=== PATIENT | male | born 1960 | race African-American/Black ===

== ENCOUNTER 2018-05-17 06:06 | Inpatient (IN) | payer OTHER ==
[~2018-05-17] VITALS: Ht 167.6 cm; Wt 74.8 kg
[2018-05-17] VITALS (9 sets, daily range): BP systolic 93–125; BP diastolic 67–99
--- NOTE | ~2018-05-17 | HC ---
[facility] [place] [address] CONSULTATION Name: GEOVANI VANESSA Room #: 351-P [facility] IN M.R.#: [id number] Admission: 05/17/18 ������������������ Attend Phys: Noel Hong MD Discharge: ������������������ Date of : 64 Report #: [id number] THIS REPORT FOR: //name// CC: FAM unknown Noel Hong DATE OF SERVICE: 05/18/2018 HISTORY OF PRESENT ILLNESS: We were asked to see this gentleman because of concerns about mood, anxiety and substance use disorder. The patient acknowledges he is on medicine for depression, but does not recall what it was. It seems that he is very uncomfortable. They also asked for our input regarding substance use. He is not very forthcoming about this. His is in the room too half awake. We gave him the opportunity to talk to us privately, but he declined. PAST PSYCHIATRIC HISTORY: He acknowledges he is on medicine for depression and anxiety per the medical record, was taking his Prozac. FAMILY HISTORY: Noncontributory. ALLERGIES: No known medication allergies. CURRENT MEDICATIONS: Include Ativan p.r.n., Lipitor 40 daily, ferrous sulfate 325 daily, lisinopril 2.5 daily, furosemide 40 daily, hydrocortisone p.r.n., Prozac 20 daily, Xanax 3 times a day. PAST MEDICAL HISTORY: Coronary artery disease, decreased ejection fraction, shortness of breath, vascular disease, cardiomegaly. SOCIAL HISTORY: He is . It seems there is recreational use of drugs including marijuana and amphetamine. MENTAL STATUS EXAM: -[place] male, casually dressed, depressed, slightly anxious, decreased speech, decreased alertness. No suicidal or homicidal ideation elicited. Insight and judgment limited. DIAGNOSES: Substance use disorder, major depressive disorder, recurrent, moderate; anxiety disorder, not otherwise specified. RECOMMENDATIONS: Upon visiting with the gentleman, I suspect that he may be on Solu-Medrol for COPD and that some of his symptoms were influenced by the Solu-Medrol as it can worsen anxiety. However, he is not on Solu-Medrol. Chest x-ray has not been suggestive of pneumonia, and his O2 sats are actually quite good. Somewhat surprisingly, he has not had any hypertension relative to his amphetamine use, but does have a little bit of tachycardia, which could [facility] [address] [place] [address] CONSULTATION Name: GEOVANI VANESSA Room #: 351-P ADM IN M.R.#: [id number] Admission: 05/17/18 ������������������ Attend Phys: Noel Hong MD Discharge: ������������������ Date of : 64 Report #: [id number] certainly be due to his decreased ejection fraction, could be influencing his fatigue. I did try to engage this gentleman a dialogue about sobriety, but does not appear he is really ready for that at this time. It does not appear that the benzodiazepines are affecting his respiratory rate or O2 saturation. We could perhaps increase the Xanax briefly at the same time and another medicine for anxiety and mood such as gabapentin. The only other significant abnormality is his INR. I am not completely clear if this is a metabolic issue or dosage overdosage situation. ��������������������������������������������� ���������������������������������������� By: ��������������������������������������������� [id number] Jean Villalba MD /nt
[~2018-05-17 06:06] MED LIST: ASPIR 8181 MG PO; ATORVASTATIN CA40 MG PO; CARVEDILOL3.125 MG PO; CLARINEX-D 121 EACH PO; COUMADIN 4 MG TA4 M1 PO; COUMADIN 5 MG TA5 M1 PO; DEPAKOTE500 MG; FLONASE 0.05%50 MCG NASAL; LISINOPRIL2.5 M1 PO; NAPROSYN500 MG PO; NITROGLYCERIN0.4 MG SUBLING; NORCO 5-325 TA1 EACH PO; PENICILLIN VK500 MG PO; PROAIR HFA8.5 GM INH; PROZAC20 MG PO; SEROQUEL 25 MG25 M1; TORSEMIDE20 MG PO; TRAZODONE 150150 M1; VICODIN; VICODIN 5-5001 EACH PO; XANAX 0.5 MG0.5 MG PO; [UNRECOGNIZED DRUG - REMARK]; [UNRECOGNIZED DRUG - REMARK]
[2018-05-17 06:19] LABS: ABSOLUTE NEUTROPHILS 5.7 thou/uL (1.4-8.2); BASOPHILS 1.4 % (0.0-2.0); EOSINOPHILS 3.8 % (0.0-3.0); HEMATOCRIT 32.2 % (42.0-52.0); LYMPHOCYTES 20.8 % (24.0-44.0); MCV 70.8 fL (80.0-100.0); MONOCYTES 7.9 % (1.0-8.0); PLATELET COUNT 271 thou/uL (150-400); POLYS 66.1 % (36.0-66.0); RBC 4.55 mil/uL (4.50-6.00); RDW 18.8 % (10.5-14.5); WBC 8.6 thou/uL (4.0-11.0)
[2018-05-17 06:27] LABS: ANION GAP 10 mmol/L (7-16); BUN 18 mg/dL (7-18); CALCIUM 8.6 mg/dL (8.5-10.1); CHLORIDE 104 mmol/L (98-107); CO2 26 mmol/L (21-32); CREATININE 1.4 mg/dL (0.7-1.3); GLUCOSE 130 mg/dL (74-106); POTASSIUM 3.6 mmol/L (3.5-5.1); SODIUM 140 mmol/L (136-145)
[2018-05-17 06:36] LABS: PROTIME 89.9 Seconds (9.3-11.4); TROPONIN-I <0.06 ng/mL (<0.06)
[2018-05-17 06:37] LABS: APTT 59.5 Seconds (24.5-32.8); INR 8.8
[2018-05-17 06:45] LABS: BE(vivo) 0.7 mmol/L (-2 to +3); HCO3 25.2 mmol/L (22.0-26.0); PCO2 39.9 mmHg (35.0-45.0); PO2 68.6 mmHg (80.0-100.0); pH 7.418 (7.360-7.450); sO2 94.1 % (92.0-98.0)
[2018-05-17 06:54] LABS: AMP/METHAMP POSITIVE (Negative); BARBITURATES Negative (Negative); BENZODIAZEPINES Negative (Negative); COCAINE Negative (Negative); METHADONE Negative (Negative); OPIATES Negative (Negative); PCP Negative (Negative)
[2018-05-17 07:12] LABS: ANISOCYTOSIS 2+; HYPOCHROMASIA 2+; LARGE PLATELETS OCCASIONAL; MICROCYTES 1+; POLYCHROMASIA 1+
[2018-05-17] MEDS ORDERED: LASIX 40 MG TAB40 M2 PO (07:40)
[2018-05-17 07:54] LABS: % SATURATION 8 % (20-39); IRON 39 ug/dL (65-175); TIBC 485 ug/dL (250-450)
[2018-05-17 08:21] LABS: TSH 3.537 uIU/mL (0.358-3.740)
--- NOTE | 2018-05-17 09:10 | EKG ---
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: valorie : 1960 Requested By: Jm Givens Order Number: [id number] MD: Jeremy Blair Measurements Intervals [place] Rate: 104 P: 79 NE: 177 QRS: 20 QRSD: 109 T: 103 QT: 385 QTc: 507 Interpretive Statements Sinus tachycardia LAE, consider biatrial enlargement Nonspecific intraventricular conduction delay Prolonged QT interval Repolarization abnormality Compared to ECG 02/28/2015 14:41:15 Ventricular premature complex(es) no longer present Electronically Signed On 05-17-2018 9:10:46 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
--- NOTE | 2018-05-17 10:48 | 2DMMODE ---
[facility] [address] [place] [address] 2 D/M-MODE ECHOCARDIOGRAM Name: RASHEEDAGEOVANI Room #: 355-P [facility] IN M.R.#: [id number] ������������� Admission: 05/17/18 ������������� Attend Phys: Noel Hong, Discharge: ��� ������������� ��� Date of : 64 Date of Service: 05/17/18 1048 �� Report #: [id number] �������� ��������������������������������������������[id number] THIS REPORT FOR: //name// APPROVED REPORT Study performed: 05/17/2018 09:38:36 EXAM: Comprehensive 2D, Doppler, and color-flow Echocardiogram Patient Location: Echo lab Room #: 355 Status: routine BSA: 1.84 HR: 99 bpm BP: 106/79 mmHg Rhythm: Tachycardia Other Information Study Quality: Good Indications Congestive Heart Failure COPD Dyspnea Cardiomyopathy Hypertension/HDD 2D Dimensions RVDd: 49.44 mm IVSd: 7.60 (7-11mm) LVOT Diam: 19.03 (18-24mm) LVDd: 68.82 mm PWd: 7.29 (7-11mm) Ascending Ao: 30.78 (22-36mm) LVDs: 61.84 (25-40mm) Aortic Root: 30.22 mm IVC: 27.00 mm Volumes Left Atrial Volume (Systole) Single Plane 4CH: 124.29 mL Single Plane 2CH: 89.93 mL LA ESV Index: 61.00 mL/m2 Pulmonary Valve PV Peak Lazaro.: 0.65 m/s PV Peak Gr.: 1.68 mmHg Tricuspid Valve TR Peak Lazaro.: 2.99 m/s TR Peak Gr.: 35.70 mmHg [facility] [address] [place] [address] 2 D/M-MODE ECHOCARDIOGRAM Name: GEOVANI VANESSA Room #: 355-P [facility] IN .R.#: [id number] ������������� Admission: 05/17/18 ������������� Attend Phys: Noel Hong, Discharge: ��� ������������� ��� Date of : 64 Date of Service: 05/17/18 1048 �� Report #: [id number] �������� ��������������������������������������������[id number] PA Pressure: 51.00 mmHg Left Ventricle Left ventricle is dilated. There is severe global hypokinesis of the left ventricle. There is normal left ventricular wall thickness. Left ventricular ejection fraction is severely decreased. LVEF is 15-20%. Grade IV - fixed restrictive diastolic dysfunction. Right Ventricle Right ventricle is dilated. Right ventricle is hypokinetic. Atria Left atrium is dilated. Right atrium is dilated. Aortic Valve The aortic valve is normal in structure. Trace aortic regurgitation. There is no aortic valvular stenosis. Mitral Valve The mitral valve is normal in structure. Mild mitral regurgitation. No evidence of mitral valve stenosis. Tricuspid Valve The tricuspid valve is normal in structure. There is moderate tricuspid regurgitation. Estimated PAP 51 mmHg. There is moderate pulmonary hypertension. Pulmonic Valve The pulmonary valve is normal in structure. Mild pulmonic regurgitation. Great Vessels The aortic root is normal in size. The inferior vena cava is dilated with no inspiratory collapse. Pericardium There is no pericardial effusion. <Conclusion> Left ventricle is dilated. LVEF is 15-20%. Right ventricle is dilated. Right ventricle is hypokinetic. Left atrium is dilated. Right atrium is dilated. [facility] [address] [address] 2 D/M-MODE ECHOCARDIOGRAM Name: GEOVANI VANESSA Room #: 355-P [facility] IN [facility].#: [id number] ������������� Admission: 05/17/18 ������������� Attend Phys: Noel Hong, Discharge: ��� ������������� ��� Date of : 64 Date of Service: 05/17/188 �� Report #: [id number] �������� ��������������������������������������������[id number] The aortic valve is normal in structure. Trace aortic regurgitation. The tricuspid valve is normal in structure. There is moderate tricuspid regurgitation. Estimated PAP 51 mmHg. There is moderate pulmonary hypertension. The pulmonary valve is normal in structure. Mild pulmonic regurgitation. There is no pericardial effusion. ��������������������������������������������� <ELECTRONICALLY SIGNED> ���������������������������������������� By: Troy Ramirez MD ��������������������������������������������� 05/17/188 47 Troy Ramirez MD /INF
--- NOTE | 2018-05-17 15:53 | NUR ---
CM ATTEMPTED TO MEET WITH PATIENT X2 BUT UNABLE TO WAKE UP PATIENT EACH TIME. PT WOKE UP FOR A COUPLE OF SECONDS AND WENT BACK TO SLEEP. CM WILL REATTEMPT AT A LATER TIME.
--- NOTE | 2018-05-17 19:43 | NUR ---
PATIENT IS QUITE DISORIENTED WHEN HE WAS ADMITTED TO ROOM. HE IS QUITE IMPULSIVE, WILL JUMP OUT OF BED AND WALK ACROSS ROOM WITH NO ASSIST. HE WILL SUDDENLY FALL ASLEEP. HE WAS NOTED TO BE RESTLESS ON THE BED CALLING OUT " MAMA, MAMA WHERE ARE YOU" AT OTHER TIIMES HE WAS MUTTERING " I WANT MY ,I WANT MY ." NOT EASILY REDIRECTED. STARTED ON CIWA PROTOCOL AND ONE DOSE OF LORAZEPAM ADMINISTERED. IT WAS EFFECTIVE.
[2018-05-17 22:41] LABS: BE(vivo) -1.2 mmol/L (-2 to +3); HCO3 23.9 mmol/L (22.0-26.0); PCO2 41.6 mmHg (35.0-45.0); pH 7.378 (7.360-7.450); sO2 96.3 % (92.0-98.0)
[2018-05-18 03:36] VITALS: BP 115/92
[2018-05-18 03:53] LABS: CALCIUM 8.5 mg/dL (8.5-10.1); CREATININE 1.4 mg/dL (0.7-1.3); POTASSIUM 4.1 mmol/L (3.5-5.1); PROTIME 67.8 Seconds (9.3-11.4)
[2018-05-18 04:02] LABS: INR 6.6
[2018-05-18 04:10] LABS: HEMATOCRIT 34.2 % (42.0-52.0); HEMOGLOBIN 10.3 gm/dL (14.0-18.0); MCH 21.8 pg (26.0-34.0)
[2018-05-18 04:13] LABS: MCHC 30.1 g/dL (28.0-37.0); MCV 72.6 fL (80.0-100.0); RBC 4.71 mil/uL (4.50-6.00); RDW 18.7 % (10.5-14.5); WBC 8.3 thou/uL (4.0-11.0)
[2018-05-18 08:00] VITALS: BP 125/85
[2018-05-18 08:36] LABS: CHOLESTEROL 115 mg/dL (<200); HDL CHOLESTEROL 36 mg/dL (>40); LDL CHOLESTEROL 55 mg/dL (<100); TC:HDL 3.2 Ratio (Not establshd); TRIGLYCERIDE 124 mg/dL (<150); VLDL 25 mg/dL (<40)
--- NOTE | 2018-05-18 08:55 | NUR ---
PATIENT HAS MOMENTS OF SEDATION AND EXTREAM CONFUSION. PATIENT WAS GIVEN BENZO REVERSAL AGENT. PATIENT BECAME MORE AWAKE BUT WAS STILL CONFUSED. PATIENT WAS TALKING TO AIR IF HAVING HALLUSINATIONS. PATIENT HAS MOMENTS WHERE HE'LL STOP TALKING MID SENTANCE. PATIENT REPONDS ON CAMAND BUT IS NOT APPROPIATE. WCM. 2 SHORT RUNS OF V-TACH THIS SHIFT. WCM.
[2018-05-18 12:00] VITALS: BP 126/90
[2018-05-18 12:19] LABS: BE(vivo) -0.6 mmol/L (-2 to +3); HCO3 24.1 mmol/L (22.0-26.0); PCO2 39.6 mmHg (35.0-45.0); PO2 111.2 mmHg (80.0-100.0); pH 7.402 (7.360-7.450); sO2 98.1 % (92.0-98.0)
--- NOTE | 2018-05-18 13:50 | NUR ---
ASSUMED PATIENT CARE AT 0715. A&OX1. PATIENT CONFUSED, STATING THEY CANT BREATH. ABG'S DONE, SEE RESULTS. PATIENT ON CONTINUOUS PULSE OX WITH SATS IN THE 90'S. PATIENT VERY IMPULSIVE AND UNSTEADY. BED ALARM ON AND CHAIR ALARM ON WHEN UP TO CHAIR. SPOUSE AT BEDSIDE. RESPIRATORY TREATMENTS ORDERED. SLOWLY PROGRESSING TOWARDS GOALS.
[2018-05-18 15:00] VITALS: BP 127/86
[2018-05-18 20:03] VITALS: BP 79/56
[2018-05-19 00:58] VITALS: BP 116/89
[2018-05-19 04:10] VITALS: BP 123/87
--- NOTE | 2018-05-19 04:32 | NUR ---
PT REMAINS CONFUSED AND IMPULSIVE. FREQUENTLY REMOVING TELE, OXYGEN AND PULSE OX. VERY RESTLESS--WITH PERIODS OF SLEEP. WILL CONTINUE TO PROVIDE FREQUENT OBSERVATION.
[2018-05-19 04:50] LABS: RDW 18.6 % (10.5-14.5)
[2018-05-19 04:53] LABS: HEMATOCRIT 32.7 % (42.0-52.0); MCH 21.8 pg (26.0-34.0); MCHC 30.5 g/dL (28.0-37.0); MCV 71.3 fL (80.0-100.0); RBC 4.58 mil/uL (4.50-6.00); WBC 8.8 thou/uL (4.0-11.0)
[2018-05-19 05:02] LABS: PROTIME 64.9 Seconds (9.3-11.4)
[2018-05-19 05:12] LABS: INR 6.3
[2018-05-19 05:14] LABS: CALCIUM 8.3 mg/dL (8.5-10.1); CREATININE 1.3 mg/dL (0.7-1.3); MAGNESIUM 1.8 mg/dL (1.8-2.4); POTASSIUM 4.2 mmol/L (3.5-5.1)
[2018-05-19 07:21] VITALS: BP 102/78
[2018-05-19 11:24] VITALS: BP 117/93
[2018-05-19 15:50] VITALS: BP 113/82
--- NOTE | 2018-05-19 18:29 | NUR ---
PT ALERT TO SELF ONLY. PT CAN BE IMPLUSIVE, BUT EASILY REDIRECTABLE. VSS, 97%2L. PT DENIES ANY PAIN THIS SHIFT. PT HAS POOR APPETITE. PT UP TO BSC WITH ASSIST OF ONE, BUT VERY UNSTEADY. CIWA 4 TO 5 THIS SHIFT. AT BEDSIDE. PT NOT PROGRESSING TOWRADS POC GOALS AT THIS TIME.
[2018-05-19 19:32] VITALS: BP 121/91
--- NOTE | 2018-05-20 03:47 | NUR ---
PT REMAINS IMPULSIVE AND CONFUSED. DENIES PAIN. 0230--PT APPEARED MORE CONFUSED, RESTLESS AND IMPULSIVE. TACHY AND DIAPHORETIC. CONTACTED NURSE PRACTIONER WHO GAVE ORDER FOR DOSE OF FLUMAZENIL. ALSO STRAIGHT CATH FOR BLADDER SCAN OF 400ML. CARRIED OUT BOTH ORDERS--PT CONDITION IMPROVED SOME. CURRENTLY SLEEPING, BREATHING MORE RELAXED. SPOKE INTELLIGIBLE WORDS. WILL CONTINUE TO MONITOR.
[2018-05-20 04:25] LABS: MCH 21.7 pg (26.0-34.0)
[2018-05-20 04:27] LABS: HEMOGLOBIN 10.4 gm/dL (14.0-18.0); MCHC 30.5 g/dL (28.0-37.0); MCV 71.1 fL (80.0-100.0); RBC 4.78 mil/uL (4.50-6.00); RDW 18.6 % (10.5-14.5); WBC 11.8 thou/uL (4.0-11.0)
[2018-05-20 04:35] LABS: CALCIUM 8.5 mg/dL (8.5-10.1); CREATININE 1.4 mg/dL (0.7-1.3); MAGNESIUM 1.9 mg/dL (1.8-2.4)
[2018-05-20 04:37] LABS: PROTIME 50.9 Seconds (9.3-11.4)
[2018-05-20 04:47] LABS: POTASSIUM 6.4 mmol/L (3.5-5.1)
[2018-05-20 04:50] LABS: INR 4.9
[2018-05-20 05:22] LABS: BE(vivo) -2.8 mmol/L (-2 to +3); HCO3 21.2 mmol/L (22.0-26.0); PCO2 34.1 mmHg (35.0-45.0); PO2 84.5 mmHg (80.0-100.0); pH 7.412 (7.360-7.450); sO2 96.6 % (92.0-98.0)
--- NOTE | 2018-05-20 05:54 | NUR ---
COREMAKER MACHINE ACTIVATED FOR APNEA AND DECREASED LOC. SEE FLOWSHEET FOR DETAILS.
[2018-05-20 07:40] VITALS: BP 119/92
[2018-05-20 08:57] LABS: AMP/METHAMP Negative (Negative); BARBITURATES Negative (Negative); BENZODIAZEPINES POSITIVE (Negative); COCAINE Negative (Negative); METHADONE Negative (Negative); OPIATES Negative (Negative); PCP Negative (Negative)
[2018-05-20 09:17] LABS: CREATININE 1.6 mg/dL (0.7-1.3)
[2018-05-20 09:18] LABS: POTASSIUM 4.7 mmol/L (3.5-5.1)
[2018-05-20 13:00] VITALS: BP 121/86
--- NOTE | 2018-05-20 19:00 | NUR ---
PT HAS BEEN VERY LETHARGIC TODAY AND THEN VERT RESTLESS AND IMPULSIVE...SITTER AT BEDSIDE..FALL PREC IN PLACE...
[2018-05-20 19:02] VITALS: BP 138/67
[2018-05-20 20:26] LABS: URINE BILIRUBIN NEGATIVE (Negative); URINE BLOOD 3+ (Negative); URINE CLARITY CLEAR; URINE COLOR YELLOW; URINE GLUCOSE-RANDOM* NEGATIVE (Negative); URINE KETONES NEGATIVE (Negative); URINE LEUKOCYTES-REFLEX NEGATIVE (Negative); URINE NITRITE-REFLEX NEGATIVE (Negative); URINE PROTEIN (DIPSTICK) NEGATIVE (Negative)
[2018-05-20 20:36] LABS: BACTERIA-REFLEX None Seen /HPF (None Seen); CASTS None Seen /LPF (None Seen); CRYSTALS None Seen /LPF (None Seen); SQUAMOUS None Seen /LPF (0-3); URINE RBC >20 Many /HPF (0-2); URINE WBC-REFLEX 6-15 Few /HPF (0-5)
[2018-05-21] VITALS (7 sets, daily range): BP systolic 94–145; BP diastolic 55–94
--- NOTE | 2018-05-21 00:34 | NUR ---
PT HAS PERIODS OF APNEA WHILE SLEEPING. PER RT, PT O2 SATS LOW ON RA WHILE ASLEEP, BUT O2 SATS IMPROVE WHEN AWAKE. RT PLACED PT ON VENTIMASK WITH 35% FIO2. MACHINE SHOP INSPECTOR MANUFACTURING ENGINEER CHIEF UPDATED. ORDER RECEIVED FOR PRN BREATING TREATMENTS. WILL CONTINUE TO MONITOR FURTHER.
--- NOTE | 2018-05-21 03:16 | NUR ---
PT CONFUSED, RESTLESS, IMPULSIVE. NO C/O PAIN. PT C/O SOA W/ EXERTION BUT HE IS FREQUENTLY MOVING AROUND AND SLIDING DOWN IN BED. FREQUENTLY TAKES OFF HIS OXYGEN MASK. O2 SATS VARIABLE, DEPENDING ON BREATHING PATTERN. SITTER AT BEDSIDE ALL NIGHT. FALL PRECAUTIONS IN PLACE. NOT PROGRESSING WELL TOWARD POC GOALS. WILL CONTINUE TO MONITOR FURTHER.
[2018-05-21 05:46] LABS: HEMATOCRIT 34.2 % (42.0-52.0); HEMOGLOBIN 10.4 gm/dL (14.0-18.0); MCH 21.6 pg (26.0-34.0); MCHC 30.3 g/dL (28.0-37.0); RBC 4.82 mil/uL (4.50-6.00); RDW 19.2 % (10.5-14.5); WBC 13.2 thou/uL (4.0-11.0)
[2018-05-21 05:52] LABS: CALCIUM 8.6 mg/dL (8.5-10.1); CREATININE 1.5 mg/dL (0.7-1.3); MAGNESIUM 1.9 mg/dL (1.8-2.4); POTASSIUM 4.9 mmol/L (3.5-5.1)
[2018-05-21 07:52] LABS: APTT 43.4 Seconds (24.5-32.8); INR 3.7; PROTIME 38.8 Seconds (9.3-11.4)
--- NOTE | 2018-05-21 15:24 | NUR ---
INITIAL ASSESSMENT: Received consult for pt having hx of drug use. SW reviewed chart and spoke with nursing and attending physician. Pt was admitted from home due to dyspnea/acute encephalopathy. Pt currently has 1:1 sitter at bedside due to agitation. Psych consulted and is following. Neuro consulted for possible LP. ID consulted today. Cardio and GI also consulted. ABIGAIL left voice message for pt's s/o, Angela ([phone]) to obtain info for assessment and to discuss pt's prior level of functioning. Awaiting call back at this time. ABIGAIL is following to assist as needed with discharge planning.
[2018-05-21 16:30] LABS: ALBUMIN 3.3 g/dL (3.4-5.0); DIRECT BILIRUBIN 0.4 mg/dL (<0.1-0.3); TOTAL BILIRUBIN 1.5 mg/dL (<0.1-1.0); TOTAL PROTEIN 7.5 g/dL (6.4-8.2)
--- NOTE | 2018-05-21 19:19 | NUR ---
PT REMAINS WITH IMPULSIVE BEHAVIOR AND LETHARGIC BEHAVIOR...SITTER AT BEDSIDE..
[2018-05-22 00:17] VITALS: BP 123/86; BP 157/95
--- NOTE | 2018-05-22 05:23 | NUR ---
ASSUMED PT CARE AROUND 1900. PT SLEPT PART OF THE NIGHT BUT AWAKENS VERY RESTLESS, IMPULSIVE, CONFUSED. FREQUENT REORIENTATION PROVIDED. SITTER AT BEDSIDE. PT HAS PERIODS OF APNEA WHILE SLEEPING. PT A LITTLE MORE AWAKE, TRYING TO COMMUNICATE THIS MORNING. HE MUMBLED THAT HE WANTED A SODA TO DRINK. SAT ON SIDE OF BED TO DRINK SODA. TOLERATED WELL. RECEIVED [address] ORDER. TOLERATED WELL. NO REACTION NOTED. FALL PRECAUTIONS IN PLACE. NOT PROGRESSING WELL TOWARD POC GOALS. WILL CONTINUE TO MONITOR FURTHER.
[2018-05-22 07:10] VITALS: BP 113/84
[2018-05-22 08:38] LABS: HEMATOCRIT 34.7 % (42.0-52.0); HEMOGLOBIN 10.7 gm/dL (14.0-18.0); MCH 22.1 pg (26.0-34.0); MCHC 30.7 g/dL (28.0-37.0); MCV 71.9 fL (80.0-100.0); RBC 4.83 mil/uL (4.50-6.00); RDW 19.7 % (10.5-14.5); WBC 10.8 thou/uL (4.0-11.0)
[2018-05-22 08:40] LABS: CALCIUM 9.1 mg/dL (8.5-10.1); CREATININE 1.7 mg/dL (0.7-1.3); MAGNESIUM 2.1 mg/dL (1.8-2.4); POTASSIUM 4.4 mmol/L (3.5-5.1)
[2018-05-22 08:57] LABS: INR 1.4
[2018-05-22 12:11] LABS: HEPATITIS B SURFACE AG Negative (Negative); HEPATITIS C VIRUS AB <0.1 (0.0-0.9); HIV ANTIBODY Non Reactive (Non Reactive)
[2018-05-22 13:35] VITALS: BP 102/75
[2018-05-22 14:07] LABS: INR 1.4; PROTIME 14.3 Seconds (9.3-11.4)
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
[2018-05-22 16:05] VITALS: BP 110/71
--- NOTE | 2018-05-22 17:34 | NUR ---
PT A BIT CALMER TODAY..STILL IMPULSIVE AND SITTER AT BEDSIDE..UNABLE TO FOLLOW SIMPLE COMMANDS...
[2018-05-22 19:10] LABS: SYPHILIS AB Negative (Negative)
[2018-05-22 20:00] VITALS: BP 112/79
[2018-05-23] VITALS (7 sets, daily range): BP systolic 97–133; BP diastolic 62–90
--- NOTE | 2018-05-23 03:19 | NUR ---
PATIENT IS SLOWLY PROGRESSING IN HIS CARE PLAN. VITAL SIGNS STABLE WITH NURSE NOT PERCEIVING ANY PAIN OR NAUSEA ON BEHALF OF PATIENT. HE REMAINED MOSTLY DISORIENTED DURING SHIFT WITH MARKED MOMENTS OF CONFUSION. BREATHING MOSTLY STABLE ON VENTI MASK EVIDENCED BY CONTINUOUS SATURATION MONITOR. PATIENT DID EXHIBIT REGULAR EPISODES OF APNEA WHICH LASTED UPWARDS OF TEN SECONDS AT A TIME. PATIENT ALSO REMOVED OXYGEN FREQUENTLY DUE TO CONFUSION. UP MULTIPLE TIMES TO BEDSIDE COMMODE WITH ASSISTANCE INCIDENT FREE, PATIENT IS A HIGH FALL RISK AND IMPULSIVE AT TIMES. PATIENT HAS BEEN KEPT NPO FROM MIDNIGHT ON IN ANTICIPATION OF TODAYS PROCEDURE. CONTINUE PLAN OF CARE.
[2018-05-23 05:13] LABS: HEMATOCRIT 33.1 % (42.0-52.0); HEMOGLOBIN 10.4 gm/dL (14.0-18.0); MCH 22.5 pg (26.0-34.0); MCHC 31.4 g/dL (28.0-37.0); MCV 71.6 fL (80.0-100.0); RBC 4.63 mil/uL (4.50-6.00); RDW 19.5 % (10.5-14.5); WBC 9.2 thou/uL (4.0-11.0)
[2018-05-23 05:25] LABS: CALCIUM 8.6 mg/dL (8.5-10.1); CREATININE 1.7 mg/dL (0.7-1.3); MAGNESIUM 1.9 mg/dL (1.8-2.4); POTASSIUM 3.8 mmol/L (3.5-5.1)
[2018-05-23 10:44] LABS: INR 1.2; PROTIME 12.5 Seconds (9.3-11.4)
--- NOTE | 2018-05-23 14:55 | NUR ---
SW reviewed chart and spoke with nursing and attending physician. Pt had LP today in IR. 1:1 sitter remains present at bedside due to pt's agitation and confusion. ABIGAIL is following to assist as needed with discharge planning.
[2018-05-23 15:53] LABS: CSF CLARITY CLEAR; CSF COLOR COLORLESS; VOLUME 16 ml
[2018-05-23 15:59] LABS: CSF GLUCOSE 58 mg/dL (40-70); CSF PROTEIN 37 mg/dL (15-45)
[2018-05-23 16:20] LABS: CSF RBC 15 /mm3; CSF WBC 1 /mm3 (0-10)
--- NOTE | 2018-05-23 19:33 | NUR ---
PT WAS MUCH MORE AWAKE AND ORIENTED TODAY...WAS VERY VERBALLY ABUSIVE TO STAFF THIS MORNING BECAUSE HE WAS UPSET REGARDING NPO STATUS FOR LUMBAR PUNCTURE.. SITTER AT BEDSIDE...
[2018-05-24 04:09] LABS: SERUM ALBUMIN 3.5 g/dL (3.5-5.5)
--- NOTE | 2018-05-24 05:00 | NUR ---
patient refuses to wear oxygen by mask or nasal cannula. placed continuous pulse ox probe on right great toe. pulse ox 93-100%. patient restless, thrashing around in bed, calling out for help, but will deny any distress when asked directly looking in his eyes. became very agitated around midnight. given 1 x dose of IV Ativan. more calm, dozing after Ativan given. sitter at bedside.
[2018-05-24 05:44] VITALS: BP 120/95
[2018-05-24 08:46] VITALS: BP 127/76
--- NOTE | 2018-05-24 10:20 | EEG ---
[facility] [place] [address] ELECTROENCEPHALOGRAM Name: GEOVANI VANESSA Room #: 351-P ADM IN M.R.#: [id number] ������������������ Admission: 05/17/18 ������������������ Attend Phys: Noel Hong MD Discharge: ������������������ Date of : 64 Report #: [id number] ����������������������������������������������������������������� [id number] THIS REPORT FOR: //name// CC: FAM unknown Noel Hong DATE OF SERVICE: 05/22/2018 This patient is being evaluated for altered mental status. EEG was done by placing the electrode by standard 10-20 system of electrode placement. Both referential and sequential montages were used for recording. Background activity in this patient's EEG is about 10 Hz and 30 microvolt. The patient is impulsive. Lot of artifact is present. Photic stimulation was unremarkable. The patient became drowsy and that is associated with bilateral slowing and vertex sharp waves. IMPRESSION: Except for mild intermixed theta range slowing, this EEG does not appear to be showing any definite abnormality. EEG is suboptimal because the patient is impulsive and did not cooperate. ���������������������������������������� <ELECTRONICALLY SIGNED> ���������������������������������������� By: Woodrow Villegas MD ��������������������������������������������� 05/24/18 1020 1749 25 Woodrow Villegas MD /nt
--- NOTE | 2018-05-24 10:26 | NUR ---
Nutrition: assess d/t LOS. Pt admitted for SOB and AMS. Pt was sleeping during attempted visit. Wt hx shows ~15 lb weight gain in 6 months. NPO for lumbar puncture on 05/23, heart healthy diet resumed now. Appetite good, per nursing. Consider low risk at this time.
--- NOTE | 2018-05-24 11:17 | NUR ---
ASSUMED PT CARE AT 0700. ASSESSED PT AT 1000. PT RESTING IN BED. HAS BEEN RESTLESS, IMPULSIVE AND YELLING OUT. PT IS ORIENTED TO PERSON ONLY. ASSESSMENT IS CHARTED. ABDOMEN IS DISTENDED AND ROUND. DOES NOT APPEAR TENDER. 02 REMAINS AT 2L PER NC AND PT REMAINS IN THE 90'S ON THAT. PT DOES NOT APPEAR TO BE IN PAIN. VSS. SITTER IS AT BEDSIDE. BED ALARM ON. WILL CONTINUE WITH CURRENT CARE.
[2018-05-24 13:39] VITALS: BP 109/56
--- NOTE | 2018-05-24 13:57 | NUR ---
PT CONTINUES TO BE IMPULSIVE AND RESTLESS, THOUGH AT THIS TIME HE IS SLEEPING. PT CONTINUES TO PULL LEADS OFF AND IV OUT. O2 SAT IS 93% ON ROOM AIR. PT DOES NOT LEAVE PROBE ON OR OXYGEN ON. VITAL SIGNS STABLE. WILL CONTINUE TO MONITOR.
--- NOTE | 2018-05-24 15:04 | NUR ---
PT CONTINUES TO REMOVE OXYGEN. O2 SAT IS 90'S BUT TENDS TO DESAT DOWNT TO LOW 80'S. GOOD WAVEFORM NOTED ON MONITOR. O2 AT 2L PER NC WHEN PT LEAVES IT ON.
--- NOTE | 2018-05-24 17:28 | HC ---
[facility] [place] [address] CONSULTATION Name: GEOVANI VANESSA Room #: 351-P [facility] IN M.R.#: [id number] Admission: 05/17/18 ������������������ Attend Phys: Noel Hong MD Discharge: ������������������ Date of : 64 Report #: [id number] THIS REPORT FOR: //name// CC: FAM unknown Noel Hong DATE OF SERVICE: 05/23/2018 REFERRING PHYSICIAN: Dr. Hong. REASON FOR REFERRAL: Hypoxia. HISTORY OF PRESENT ILLNESS: The patient is a 57-year-old male who was admitted 05/17/2018 with dyspnea, orthopnea, cough. The patient was found to have nocturnal hypoxia. A pulmonary consultation was requested. Since admission, the patient has been treated for heart failure. He has cardiomegaly by chest x-ray. Ejection fraction markedly reduced to 15%-20%. Etiology of this is not specified. The patient has been followed at [facility]. He is followed by his service advisor, Dr. Christian Nguyen. Since admission, he was found to be encephalopathic, felt to be related to drug use including amphetamines, marijuana. There is question of viral encephalitis. The patient continues to be confused, restless. Plans are for lumbar puncture. This will be performed later today. Since admission, the patient was found to be hypoxic during sleep. Pulmonary consultation requested. Currently, he is awake, restless, confused. Not able to obtain much history. PAST MEDICAL HISTORY: As mentioned above, cardiomyopathy, polysubstance abuse, peripheral artery disease, status post stent in his left lower extremity, hypertension, hyperlipidemia, traumatic brain injury, seizure, anxiety disorder. PAST SURGICAL HISTORY: Unremarkable. ALLERGIES: None noted. CURRENT MEDICATIONS: Reviewed in the MAR. He is currently on DuoNeb, aspirin, Lipitor, Coreg, torsemide, iron supplements, hydrocodone, Zestril, gabapentin. FAMILY HISTORY: Noncontributory. SOCIAL HISTORY: He is . The patient has smoked, but quit some time ago. This is also positive for amphetamine use, methamphetamine use, marijuana [facility] [address] [place] [address] CONSULTATION Name: GEOVANI VANESSA Room #: 351-P [facility] IN M.R.#: [id number] Admission: 05/17/18 ������������������ Attend Phys: Noel Hong MD Discharge: ������������������ Date of : 64 Report #: [id number] abuse. No history of alcohol abuse. REVIEW OF SYSTEMS: Deferred as the patient is confused. PHYSICAL EXAMINATION: GENERAL: He is awake, confused, appears somewhat restless. VITAL SIGNS: Temperature is 97.5 degrees Fahrenheit, pulse is 94, respiratory rate is 18, blood pressure 130/89 mmHg, saturation is 100%. HEENT: Normocephalic, atraumatic. NECK: Supple, no lymphadenopathy or thyromegaly. CHEST: Breath sounds are clear bilaterally without any rales or wheezes. CARDIOVASCULAR: Normal S1, S2. There are no obvious murmurs or gallop. Pulses are 2+/4+ bilaterally. ABDOMEN: Soft, nontender, no organomegaly or masses felt. GENITOURINARY: Deferred. RECTAL: Deferred. EXTREMITIES: No cyanosis, clubbing or edema. LABORATORY DATA: Chest x-ray shows marked cardiomegaly, no obvious infiltrates. Urine drug screen was positive for benzodiazepines only, but negative for methamphetamines, THC. CT head was unremarkable. UA was grossly unremarkable. MRI of the head was unremarkable. Ammonia was 38. Syphilis antibody was negative. Sodium 138, potassium 3.8, chloride 100, CO2 is 27, BUN is 29, creatinine is 1.7. Admitting creatinine is 1.4. WBC 9200, hemoglobin 10.4, platelets are normal. Albumin 3.3. Arterial blood gas revealed pH 7.41, pCO2 of 34, pO2 of 84 on 4 liters of O2. ASSESSMENT AND PLAN: 1. Nocturnal hypoxia in this 57-year-old male now with encephalopathy. Etiology is unclear, but may be related to sleep related breathing disorder. Workup will be beneficial when the patient's medical condition improves. 2. Encephalopathy, acute, etiology remained unclear. Currently, being followed by Neurology, Infectious Disease. Lumbar puncture has been recommended. 3. History of traumatic brain injury with seizure disorder. 4. Severe cardiomyopathy, ejection fraction 15%-20%, type not specified. Etiology unclear with acute on chronic systolic heart failure. 5. Chronic anemia, hypotension borderline, likely related to cardiogenic. 6. History of depression and anxiety disorder. RECOMMENDATION AND DISCUSSION: 1. In terms of nocturnal hypoxia, the patient will benefit from a sleep study; however, given his current mental status, this will be difficult to accomplish. One will be scheduled as outpatient once he is stabilized. For now, continue O2 to keep saturation 90%. 2. In terms of lumbar puncture, agree with consulting anesthesia for sedation. [facility] [address] [place] [address] CONSULTATION Name: GEOVANI VANESSA Room #: 351-P [facility] IN M.R.#: [id number] Admission: 05/17/18 ������������������ Attend Phys: Noel Hong MD Discharge: ������������������ Date of : 64 Report #: [id number] Not certain if intubation is necessary at this time other than conscious sedation. Thank you for this consultation. ��������������������������������������������� <ELECTRONICALLY SIGNED> ���������������������������������������� By: Jose Miguel Logan MD ��������������������������������������������� 05/24/18 1728 1237 0043 Jose Miguel Logna MD /nt
--- NOTE | 2018-05-24 18:04 | NUR ---
PT CONTINUES TO PULL TELE MONITOR OFF WELL OXYGEN AND O2 SAT PROBE. PT SLEEPING AT THIS TIME. HAS BEEN SINUS RHYTHM WHEN HE IS ON THE MONITOR. PT DOES OCCASIONALLY DESAT BUT ONLY FOR A FEW SECONDS. WILL CONTINUE TO MONITOR. SITTER AT BEDSIDE.
[2018-05-24 19:30] VITALS: BP 119/71
--- NOTE | 2018-05-25 04:11 | NUR ---
Patient making slow progress towards outcome goals. Continues to have periods of restlessness and aggitation. Remain confused, frequently attempting to get out of bed and pulling at lines requiring continued 1:1 sitter at bedside. Wound not keep NC on. Vital signs and rhythm stable,
[2018-05-25 04:47] VITALS: BP 129/71
[2018-05-25 06:34] LABS: HEMOGLOBIN 10.4 gm/dL (14.0-18.0); MCH 22.3 pg (26.0-34.0); MCHC 30.7 g/dL (28.0-37.0); MCV 72.5 fL (80.0-100.0); RBC 4.69 mil/uL (4.50-6.00); RDW 20.6 % (10.5-14.5); WBC 9.3 thou/uL (4.0-11.0)
[2018-05-25 06:43] LABS: INR 1.3; PROTIME 13.6 Seconds (9.3-11.4)
[2018-05-25 06:49] LABS: ALBUMIN 3.3 g/dL (3.4-5.0); CALCIUM 8.7 mg/dL (8.5-10.1); CREATININE 1.8 mg/dL (0.7-1.3); POTASSIUM 4.5 mmol/L (3.5-5.1); TOTAL BILIRUBIN 1.9 mg/dL (<0.1-1.0); TOTAL PROTEIN 6.8 g/dL (6.4-8.2)
[2018-05-25 09:00] VITALS: BP 143/90
[2018-05-25 09:39] LABS: URINE BILIRUBIN NEGATIVE (Negative); URINE BLOOD NEGATIVE (Negative); URINE CLARITY CLEAR; URINE COLOR YELLOW; URINE GLUCOSE-RANDOM* NEGATIVE (Negative); URINE KETONES TRACE (Negative); URINE LEUKOCYTES NEGATIVE (Negative); URINE NITRITE NEGATIVE (Negative); URINE PROTEIN (DIPSTICK) NEGATIVE (Negative)
[2018-05-25 12:09] VITALS: BP 98/43
[2018-05-25 15:37] VITALS: BP 112/83
--- NOTE | 2018-05-25 18:30 | NUR ---
Pt was asleep almost through out the day. Would wake up to take oral medication and ate hi breakfast and dinner. Telemetry leads are placed on his back due to pt taking them out from last night. VS stable, O2 in the upper 90's, was able to keep the NC on for the most part. Partner was at the bed side this am. Pt had a sitter (1:1) for the whole day. NO issues encountered through out the shift.
[2018-05-25 19:00] VITALS: BP 103/81
--- NOTE | 2018-05-26 03:08 | NUR ---
ASSUMED PT CARE AROUND 1900. PT SLEPT MOST OF THE NIGHT BUT WAS EASILY ARROUSABLE. PT HAS BEEN MORE ALERT AND COHERENT THIS MORNING. HE IS ABLE TO STATE THE NAME OF THE HOSPITAL HE IS IN AND THE CURRENT MONTH. DENIES ANY PAIN. SITTER AT BEDSIDE UNTIL AROUND 0130 AND THEN REMOVED, PT'S BEHAVIOR HAS BEEN MORE APPROPRIATELY. VSS. FALL PRECAUTIONS IN PLACE. PROGRESSING SLOWLY TOWARD POC GOALS. WILL CONTINUE TO MONITOR CLOSELY.
[2018-05-26 03:51] VITALS: BP 88/71
[2018-05-26 06:02] VITALS: BP 96/73
[2018-05-26 08:27] VITALS: BP 122/55
--- NOTE | 2018-05-26 09:55 | NUR ---
ASSUMED CARE OF PT AT 0700. DR. BLAKE AT BEDSIDE. NEW ORDERS FOR MUCINEX AND PT/OT, WILL GIVE ORDERED.
[2018-05-26 13:58] VITALS: BP 104/83
[2018-05-26 16:38] VITALS: BP 89/64
[2018-05-26 19:15] VITALS: BP 110/79
--- NOTE | 2018-05-26 19:56 | NUR ---
END OF SHIFT. NEW PT COMPLAINTS ABOUT LEG PAIN, PHYSICINAN NOTIFIED. US LOWER EXTREMITY ORDERED FOR TOMORROW, PAIN MEDS GIVEN ORDERED. PT SLEPT MOST OF THE DAY, MORE ORIENTED THIS EVENING.
[2018-05-27] VITALS (7 sets, daily range): BP systolic 87–107; BP diastolic 57–70
--- NOTE | 2018-05-27 04:51 | NUR ---
ASSUMED PT CARE AROUND 1900. PT IS ABLE TO ANSWER MOST ORIENTATION QUESTIONS. HE IS MORE ALERT AND ORIENTED, BUT STILL HAS SOME FORGETFULNESS. HE IS ABLE TO HAVE LOGICAL CONVERSATIONS WITH STAFF MEMBERS. PT SLEPT MOST OF THE NIGHT. RESP EVEN AND UNLABORED. UP W/ SBA TO BTR TO VOID. PT IS HOPING TO GO HOME SOON. PROGRESSING TOWARD POC GOALS. WILL CONTINUE TO MONITOR FURTHER.
[2018-05-27] MEDS ORDERED: XIFAXAN550 MG PO (11:35)
[2018-05-27] MEDS ORDERED: COUMADIN 2 MG TA2 M1 PO (11:36)
[2018-05-27] MEDS ORDERED: IRON325 PO (11:36)
[2018-05-27] MEDS ORDERED: COREG6.25 MG PO (11:37)
[2018-05-27] MEDS ORDERED: GABAPENTIN 100100 MG PO (11:37)
[2018-05-27] MEDS ORDERED: OLANZAPINE ODT5 MG PO (11:38)
[2018-05-27] MEDS ORDERED: LACTULOSE20 GM/30 M PO (11:38)
[2018-05-27] MEDS ORDERED: DEMADEX 2020 MG/1 TA PO (11:39)
[2018-05-27 13:03] LABS: HEMATOCRIT 33.5 % (42.0-52.0); MCH 22.2 pg (26.0-34.0); MCHC 30.6 g/dL (28.0-37.0)
[2018-05-27 13:04] LABS: HEMOGLOBIN 10.3 gm/dL (14.0-18.0); MCV 72.4 fL (80.0-100.0); RBC 4.63 mil/uL (4.50-6.00); RDW 22.2 % (10.5-14.5); WBC 9.8 thou/uL (4.0-11.0)
[2018-05-27 13:12] LABS: CALCIUM 8.3 mg/dL (8.5-10.1); CREATININE 1.8 mg/dL (0.7-1.3); POTASSIUM 4.2 mmol/L (3.5-5.1)
[2018-05-27 15:10] LABS: CSF IgG 2.6 mg/dL (0.0-8.6)
--- NOTE | 2018-05-27 16:06 | NUR ---
on-going assessment: CM REVIEWED CHART AND MET WITH PATIENT AT THE BEDSIDE. PT IS MORE ALERT AND PER ATTENDING PATIENT IS STABLE FOR DISCHARGE HOME TODAY. PT DID VERY WELL WITH PHYSICAL THERAPY AND IS ABLE TO DISCHARGE HOME WITH NO NEEDS. PT REPORTS HE NEEDS TRANSPORTATION HOME AND WOULD LIKE IT ARRANGED THROUGH [email or web address] CM CONTACTED [email or web address] [phone] TO ARRANGE IT TO HIS HOME ADDRESS [address] [place] [id number]. TRIP# [id number]. PT REPORTS NO FURTHER QUESTIONS FROM [facility].
--- NOTE | 2018-05-27 16:08 | NUR ---
PT ALERT AND ORIENTED X 4...SOME FORGETFULNESS WHICH IS BASELINE PER ...
--- NOTE | 2018-05-27 16:08 | NUR ---
PT DISCHARGED HOME WITH ...WILL FOLLOW UP WITH [facility] DR GOLDBERG THIS WEEK...
--- NOTE | 2018-05-27 16:13 | NUR ---
DISCHARGE NOTE: SW reviewed chart and spoke with nursing and attending physican. Pt is medically stable for discharge home today. 1:1 sitter was discontinued. Rest/exercise oximetry completed. Pt does not qualify for home O2. SW spoke with pt's , via phone to provide update and notify of discharge. Pt's states pt has in-home care through his Medicaid. Pt's states that he has a caregiver that comes in for a few hours every day. Pt's reports that they have been staying with friends and do not really have a home. SW recommended getting in contact with [facility]. SW left paperwork with pt's discharge summary. Pt's states that she would be providing transportation home. Pt and need cab ride home. JERAD CM to assist with arranging ride through [employer]. No additional SW needs identified at this time, but is available to assist should needs arise.
--- NOTE | 2018-05-29 11:08 | PATH ---
[facility] [address] [place] [address] PATHOLOGY RPT PROCEDURE Name: GEOVANI VANESSA Room #: 351-[facility] IN M.R.#: [id number] ������������������ Admission: 05/17/18 ������������������ Date of : 64 Discharge: 05/27/18 Report #: [id number] Path Case #: [id number] Note [facility] Accession Number: [id number] TESTS RESULT FLAG UNITS REF RANGE LAB Clinician Provided Cytology Information No. of containers..01 Other (Miscellaneous) Source: CSF DIAGNOSIS: 02 CSF NEGATIVE FOR MALIGNANT CELLS. NEGATIVE FOR VIRAL INCLUSIONS OR PARASITIC ORGANISMS. Pathologist ICD10: 02 R06.00, R06.02 Signed out by: Michelle Lundy MD, Pathologist NPI- [id number] Performed by: Jannette Calderon, Health Lead ([facility]) Gross description: 01 4ML, COLORLESS, CLEAR /LCS FLAG LEGEND: L-Low Normal,H-High Normal,LL-Alert Low,HH-Alert High <-Panic Low,>-Panic High,A-Abnormal,AA-Critical Abnormal Performed at: [address] [place] [address] Naif Mcnair MD, [address] [address] Michelle Lundy MD, Specimen Comment: A courtesy copy of this report has been sent to Specimen Comment: [phone]. Specimen Comment: Report sent to Specimen Comment: A duplicate report has been generated due to demographic updates. Performed at: [address], [place], [place] [id number] MD Naif Mcnair MD Phone: [phone]
== END 2018-05-27 17:21 | disposition home or self-care (01) | DRG 441 ==
LOC: ER 06:06 → 3W 07:20 → EROBS 07:20 → 3W 08:01
PROVIDERS: Emergency Medicine; Internal Medicine; Nurse Practitioner; Nurse Practitioner Acute Care; Radiology Diagnostic Radiology; Specialist; ADMIT Internal Medicine
DX: K72.90 Hepatic failure, unspecified without coma (principal); G92 Toxic encephalopathy; I50.23 Acute on chronic systolic (congestive) heart failure; F33.1 Major depressive disorder, recurrent, moderate; F05 Delirium due to known physiological condition; B19.10 Unspecified viral hepatitis B without hepatic coma; I11.0 Hypertensive heart disease with heart failure; F41.9 Anxiety disorder, unspecified; G40.909 Epilepsy, unspecified, not intractable, without status epilepticus; I73.9 Peripheral vascular disease, unspecified; E78.5 Hyperlipidemia, unspecified; I25.10 Atherosclerotic heart disease of native coronary artery without angina pectoris; J44.9 Chronic obstructive pulmonary disease, unspecified; F15.10 Other stimulant abuse, uncomplicated; F12.10 Cannabis abuse, uncomplicated; D50.9 Iron deficiency anemia, unspecified; E87.5 Hyperkalemia; I95.9 Hypotension, unspecified; I51.3 Intracardiac thrombosis, not elsewhere classified; I25.5 Ischemic cardiomyopathy; I44.7 Left bundle-branch block, unspecified; I27.20 Pulmonary hypertension, unspecified; R73.9 Hyperglycemia, unspecified; T43.625A Adverse effect of amphetamines, initial encounter; Y92.89 Other specified places as the place of occurrence of the external cause; Z87.820 Personal history of traumatic brain injury; Z95.820 Peripheral vascular angioplasty status with implants and grafts; Z87.891 Personal history of nicotine dependence; Z79.01 Long term (current) use of anticoagulants; Z79.82 Long term (current) use of aspirin; Z79.899 Other long term (current) drug therapy; Z82.49 Family history of ischemic heart disease and other diseases of the circulatory system
CPT/HCPCS: 10879; 50010; 62110; 62900; 70005

== ENCOUNTER 2018-06-19 03:54 | Inpatient (IN) | payer OTHER ==
[~2018-06-19] VITALS: Ht 167.6 cm; Wt 67.1 kg
[2018-06-19] VITALS (25 sets, daily range): BP systolic 78–143; BP diastolic 44–99
[~2018-06-19 03:54] MED LIST changes: +COREG6.25 MG PO; +COUMADIN 2 MG TA2 M1 PO; +DEMADEX 2020 MG/1 TA PO; +GABAPENTIN 100100 MG PO; +IRON325 PO; +LACTULOSE20 GM/30 M PO; +LASIX 40 MG TAB40 M2 PO; +OLANZAPINE ODT5 MG PO; +XIFAXAN550 MG PO
[2018-06-19 04:21] LABS: HEMATOCRIT 41.3 % (42.0-52.0); HEMOGLOBIN 12.8 gm/dL (14.0-18.0); MCH 22.5 pg (26.0-34.0); MCHC 30.9 g/dL (28.0-37.0); MCV 72.7 fL (80.0-100.0); RBC 5.68 mil/uL (4.50-6.00); RDW 22.4 % (10.5-14.5); WBC 8.4 thou/uL (4.0-11.0)
[2018-06-19 04:26] LABS: URINE BILIRUBIN NEGATIVE (Negative); URINE BLOOD NEGATIVE (Negative); URINE CLARITY CLEAR; URINE COLOR YELLOW; URINE GLUCOSE-RANDOM* NEGATIVE (Negative); URINE KETONES NEGATIVE (Negative); URINE LEUKOCYTES-REFLEX NEGATIVE (Negative); URINE NITRITE-REFLEX NEGATIVE (Negative); URINE PROTEIN (DIPSTICK) NEGATIVE (Negative); URINE SPECIFIC GRAVITY 1.025 (1.005-1.035); URINE UROBILINOGEN 0.2 E.U./dl (0.2-1.0)
[2018-06-19 04:30] LABS: ANION GAP 8 mmol/L (7-16); BUN 18 mg/dL (7-18); CALCIUM 9.5 mg/dL (8.5-10.1); CHLORIDE 105 mmol/L (98-107); CO2 29 mmol/L (21-32); CREATININE 1.7 mg/dL (0.7-1.3); GLUCOSE 120 mg/dL (74-106); POTASSIUM 3.6 mmol/L (3.5-5.1); SODIUM 142 mmol/L (136-145)
[2018-06-19 04:34] LABS: AMP/METHAMP POSITIVE (Negative); BARBITURATES Negative (Negative); BENZODIAZEPINES Negative (Negative); COCAINE Negative (Negative); METHADONE Negative (Negative); OPIATES Negative (Negative); PCP Negative (Negative)
[2018-06-19 04:39] LABS: ALBUMIN 3.6 g/dL (3.4-5.0); LIPASE 92 U/L (73-393); MAGNESIUM 1.6 mg/dL (1.8-2.4); SGOT 23 U/L (15-37); SGPT 32 U/L (30-65); TOTAL BILIRUBIN 0.4 mg/dL (<0.1-1.0); TROPONIN-I <0.06 ng/mL (<0.06)
--- NOTE | 2018-06-19 08:23 | EKG ---
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[place] : 1960 Requested By: Antonina Winn Order Number: [id number] MD: Joni Vela Measurements Intervals [place] Rate: 108 P: 85 RI: 191 QRS: 28 QRSD: 110 T: 88 QT: 369 QTc: 495 Interpretive Statements Sinus tachycardia Biatrial enlargement Low voltage, extremity leads LVH with secondary repolarization abnormality Compared to ECG 05/17/2018 06:21:32 Electronically Signed On 06-19-2018 8:23:04 CDT by Joni Vela [email or web address] ��������������������������������������������� <ELECTRONICALLY SIGNED> ���������������������������������������� By: Joni Vela MD ��������������������������������������������� 06/19/18 0823 6 Joni Vela MD /TALISHA
[2018-06-19 11:41] LABS: HEMATOCRIT 44.5 % (42.0-52.0); HEMOGLOBIN 13.7 gm/dL (14.0-18.0); MCH 22.6 pg (26.0-34.0); MCHC 30.9 g/dL (28.0-37.0); MCV 73.1 fL (80.0-100.0); RBC 6.09 mil/uL (4.50-6.00); RDW 22.3 % (10.5-14.5); WBC 14.9 thou/uL (4.0-11.0)
--- NOTE | 2018-06-19 11:41 | NUR ---
ASSUMED CARE OF PT 0700. PT COMPLAINING OF PAIN IN ABDOMEN. VSS. SINUS TACHY ON THE MONITOR. PT FREQUENTLY VOIDING PER URINAL. NG TUBE PLACED. PLACEMENT CONFIRMED. PT RESTING IN BED WITH CALL LIGHT IN REACH. WILL CONTINUE TO MONITOR.
[2018-06-19 11:52] LABS: INR 1.8; PROTIME 18.6 Seconds (9.3-11.4)
[2018-06-19 13:07] LABS: BE(vivo) 1.1 mmol/L (-2 to +3); HCO3 24.7 mmol/L (22.0-26.0); PCO2 36.1 mmHg (35.0-45.0); PO2 58.6 mmHg (80.0-100.0); pH 7.453 (7.360-7.450); sO2 91.8 % (92.0-98.0)
[2018-06-19 13:14] LABS: AMP/METHAMP POSITIVE (Negative); BARBITURATES Negative (Negative); BENZODIAZEPINES Negative (Negative); COCAINE Negative (Negative); METHADONE Negative (Negative); OPIATES Negative (Negative); PCP Negative (Negative)
[2018-06-19] MEDS ORDERED: CARVEDILOL3.125 MG PO (14:44)
[2018-06-19] MEDS ORDERED: COUMADIN 4 MG TA4 M1 PO (14:45)
[2018-06-19] MEDS ORDERED: LASIX 40 MG TAB40 M2 PO (14:47)
--- NOTE | 2018-06-19 17:33 | NUR ---
PATIENT TRASNFERRED TO ICU FROM CCU THIS AFTERNOON. VERY SOMULENT. REPSONDS TO PAINFUL STIMULI. PUPILS SLUGGISH AND DILATED. WHILE ASSESSING PATIENT ON ARRIVAL FOUND CLEAR PLASTIC BAG WITH SUBSTANCE TAPED TO PATIENTS FOOT. SEEN BY 2 RN'S - SECURITY AND MOTEL OPERATOR NOTIFIED. SECURITY SEARCHED PATIENTS BELONGINGS. LUNCH BOX WITH PILL BOTTLES FOUND. SENT TO PHARMACY. UPDATED DR. THOMAS ON PATIENT STATUS. ORDERS FOR ABG, CHEST XRAY AND URINE DRUG SCREEN. PATIENT WOULD WAKE UP AND BECOME COMBATIVE, NOT FOLLOWING COMMANDS. PULLING AT NG TUBE AND MULTIPLE LINES. ORDERS FOR RESTRAINTS AND PRECEDEX GTT. NG TO LIS. SMALL AMOUNT OF BROWN DRAINAGE.
--- NOTE | 2018-06-19 18:10 | NUR ---
NOTED HEMATURIA, MAY BE D/T TRAUMA FROM PULLING AT LINES - WILL CONTINUE TO MONITOR.
[2018-06-20] VITALS (34 sets, daily range): BP systolic 69–144; BP diastolic 37–120
--- NOTE | 2018-06-20 04:36 | NUR ---
ASSUMED CARE OF PT AT 1900, PT IS DROWSY AND SLEEPING MOST OF THE TIME, OCCASSIONALLY WAKES AND STARTS CALLING OUT "MAMA" PT IS ORIENTED TO SELF, PLACE AND SITUATION AT TIMES BUT IS FORGERTFUL AND NOT COOPERATIVE. HE GETS AGITATED AND RESTLESS WHEN AWAKE. HAS BEEN DEMANDING RESTRAINTS BE TAKEN OFF AND DEMANDING WATER STATING HE IS THIRSTY. MOUTH SWABS WERE DONE FREQUENTLY. PT NPO, WITH NG TO LIS, DRAINING MOD AMOUNTS OF BROWNISH FLUID. HALDOL WAS GIVEN ONETIME LAST NIGHT AND IT HELPED. PRECEDEX GTT INFUSING. PT HYPOTENSIVE SBP 80'S TO 90'S WITH MAP ABOVE 60, IVF INFUSING, UPDATE GIVEN TO DAY CARE DIRECTOR LAST NIGHT ON LOW BP. URINE OUTPUT MARGINALLY LOW, CLEAR YELLOW URINE. MG REPLACED, LAST LEVEL 2.5.
[2018-06-20 05:58] LABS: HEMATOCRIT 39.4 % (42.0-52.0); MCH 22.4 pg (26.0-34.0); MCHC 30.5 g/dL (28.0-37.0); MCV 73.3 fL (80.0-100.0); PLATELET COUNT 224 thou/uL (150-400); RBC 5.38 mil/uL (4.50-6.00); RDW 21.8 % (10.5-14.5); WBC 18.5 thou/uL (4.0-11.0)
[2018-06-20 06:06] LABS: CALCIUM 8.4 mg/dL (8.5-10.1); CREATININE 1.6 mg/dL (0.7-1.3)
[2018-06-20 06:08] LABS: POTASSIUM 5.8 mmol/L (3.5-5.1)
--- NOTE | 2018-06-20 08:12 | NUR ---
CALL PLACED TO [facility] PT'S PER PT'S REQUEST , SHE DID NOT [employer] ADMINISTRATOR AND VOICE MAIL WAS FULL, COULD NOT LEAVE MESSAGE.
[2018-06-20 08:15] LABS: ABSOLUTE NEUTROPHILS 15.4 thou/uL (1.4-8.2)
[2018-06-20 08:17] LABS: ANISOCYTOSIS 2+; HYPOCHROMASIA 1+; MICROCYTES 1+
--- NOTE | 2018-06-20 09:45 | NUR ---
ASSUMMED CARE OF PT ~0830. PT AWAKENS EASILY ON PRECEDEX, RATE DROPPED SLIGHTLY DUE TO RESP PATTERN WHEN ASLEEP.PT IMPULSIVE WHEN AWAKE BUT IMMED BACK TO SLEEP WHEN LEFT ALONE.SPOKE W RE:UGI SERIES-WILL PLAN FOR THIS AM. NORMOTENSIVE WHEN AWAKE.--VW
--- NOTE | 2018-06-20 12:57 | NUR ---
TO RADIOLOGY EARLIER THIS AM W FULL MONITORING FOR UGI SERIES.PT OSWALDO WELL. NGT KEPT CLAMPED WHILE XRAYS DONE POST TEST. PT STARTED HAVING VERY LG AMTS OF WATERY DIARRHEA & C/O ABD PAIN, NO CRAMPING. NGT BACK TO LIS, UPDATED. DR THOMAS UPDATED EARLIER ALSO. UNABLE TO INSERT FMS DUE TO EXTREMELY TIGHT SPHINCTER MUSCLE & RECTAL VAULT W ABNORMAL ANATOMY. INFORMED. LEVOPHED STARTED AT LOW DOSE EARLIER FOR MAP <55mmHG.PT BACK TO SLEEP. HE SPOKE W HIS S.O. EARLIER ON PHONE. FREQ ORAL CARE PER HIS REQUEST.--VW
--- NOTE | 2018-06-20 15:45 | HC ---
[facility] [place] [address] CONSULTATION Name: GEOVANI VANESSA Room #: 238-P ADM IN M.R.#: [id number] Admission: 06/19/18 ������������������ Attend Phys: Dank Ramírez MD Discharge: ������������������ Date of : 64 Report #: [id number] THIS REPORT FOR: //name// CC: Dank Ramírez MD [facility] physician/PCP DATE OF SERVICE: 06/19/2018 PATIENT OF: Dr. Ramírez. CHIEF COMPLAINT: This patient is a pleasant 57-year-old -[place] male who is well known to us from previous evaluations. We were asked to see because of tremendous gastric dilatation and a dense material in the stomach of uncertain etiology. When I saw him initially, he complained of discomfort and tenderness in the right lower quadrant to palpation. He did not complain of any upper abdominal discomfort, nausea or vomiting. PAST MEDICAL HISTORY: Quite extensive. He has a history of severe ischemic cardiomyopathy with a left ventricular ejection fraction of 15-20%. He also has a history of cardiac mural thrombus and has been on warfarin for this. He has had several cerebrovascular accidents. He has had a history of congestive heart failure, hypertension, hyperlipidemia, peripheral vascular disease, STEMI in 2006. He is an incomplete left bundle-branch block. He has chronic renal insufficiency with a GFR of 64 and creatinine of 1.7. He is bipolar, depression, seizures secondary to history of traumatic brain injury. The patient does not take any seizure medications, however, at this time. COPD, microcytic anemia. PAST SURGICAL HISTORY: None that I am aware of. ALLERGIES: No known drug allergies. MEDICATIONS: Prior to admission included alprazolam, 81 mg aspirin, Lipitor, Coreg, iron sulfate, Prozac, Neurontin, lactulose, lisinopril, olanzapine, Xifaxan, torsemide and warfarin. SOCIAL HISTORY: The patient once again has a drug screen positive for amphetamines and marijuana. FAMILY HISTORY: Not taken. REVIEW OF SYSTEMS: He denies dysphagia, odynophagia, gastroesophageal reflux, history of hiatal hernia or peptic ulcer disease. He denies any nausea or vomiting. His weight has been stable. Appetite is usually good until just recently here. He denies any hematemesis, hematochezia or melena. He complains [facility] [address] [place] [address] CONSULTATION Name: GEOVANI VANESSA Room #: 238-P [facility] IN M.R.#: [id number] Admission: 06/19/18 ������������������ Attend Phys: Dank Ramírez MD Discharge: ������������������ Date of : 64 Report #: [id number] of pain in the right lower quadrant on my initial evaluation. Denies hematemesis, hematochezia or melena. Denies any history of jaundice, hepatitis, cholelithiasis, cholecystitis or pancreatitis. PHYSICAL EXAMINATION: GENERAL: Reveals a well-developed, well-nourished 57-year-old male who is in obvious distress, lying quietly in bed on his right side and preferring to remain motionless. VITAL SIGNS: At the time of my evaluation shows temperature of 36.4, pulse 113 and he is in normal sinus rhythm, respirations are 22, blood pressure 113/82, pulse ox is 92% on room air. HEENT: He is normocephalic, atraumatic and anicteric. HEART: Rate and rhythm are regular, although he is tachycardic with rate in the 110s. He appears to be in sinus rhythm at this time. LUNGS: Clear to auscultation in all perez. ABDOMEN: Greatly distended, tender to palpation, especially in the right lower quadrant, but no rebound or guarding. Bowel sounds are very high pitched in all perez. EXTREMITIES: Warm and dry currently. NEUROLOGIC: I could not test him extensively because he could not cooperate with testing at this time. SIGNIFICANT LABORATORY DATA: White blood cell count on admission is 8.4, hemoglobin 12.8, hematocrit 41.3, MCV 72.7, MCH is 22.5, MCHC is 30.9, RDW is 22.4, platelet counts 280,000. Creatinine is 1.7 on the BMP. Glucose is 120, magnesium 1.6, alkaline phosphatase 145. AST and ALT are normal. Ammonia is less than 10. GFR is 51. His BNP was 7782. Previous iron saturation in May of this year was 8% and he has been on oral iron. Drug screen is positive for amphetamines and marijuana. IMAGING STUDIES: CT scan of the abdomen with IV contrast showed high density material in the stomach. This could suggest GI bleed versus some type of ingested metal. Liver shows a right lobe lesion measuring 10.9 mm. Gallbladder is normal. Spleen is normal. Adrenals are normal. Pancreas is normal. Aorta, normal enhancing with normal size, major branch vessels are patent. Mild distention of small bowel loops throughout the abdomen, nonspecific. Colon was not distended, no definite transition zone was seen. Appendix was not well seen. The patient does have appendicolith. IMPRESSION AND PLAN: 1. Massive dilatation of the stomach with what is at least partially a very dense contrast due to a metallic substance or blood in the stomach. The patient has been taking Pepto-Bismol at home. It is possible that bismuth could be causing this appearance. We placed an NG tube and successfully decompressed the stomach and obtained hawkins-brown matter from the stomach that was particulate in nature. There was also some Yjlir-Kfklnl-aqyfkia fluid. The patient reports [facility] [address] [place] [address] CONSULTATION Name: GEOVANI VANESSA Room #: 238-P ADM IN M.R.#: [id number] Admission: 06/19/18 ������������������ Attend Phys: Dank Ramírez MD Discharge: ������������������ Date of : 64 Report #: [id number] taking Pepto-Bismol. Decompression of the stomach with NG suction immediately relieved his pain and abdominal distention. 2. The patient is very impulsive and it is going to be very difficult to keep his NG tube in place without constant monitoring. 3. Chronic obstructive pulmonary disease. 4. Ischemic cardiomyopathy with left ventricular ejection fraction of 15-20%. 5. History of ST segment elevation with myocardial infarction in 2005. 6. Amphetamine and marijuana positivity on drug screen again. 7. History of mural thrombus for which he takes Coumadin. 8. History of numerous cerebrovascular accidents and cerebral atrophy. 9. Bipolar, depression and anxiety. The patient is very impulsive and jumpy. 10. Hyperlipidemia. 11. Hypertension. 12. History of seizures, not on seizure medicines currently. 13. Peripheral vascular disease with stent in the left leg. 14. Microcytic anemia, on iron supplements. Needs EGD and colonoscopy, but he is a very poor candidate for sedation due to his heart situation. 15. Chronic renal insufficiency, creatinine 1.7. GFR was 57 actually. 16. Slightly elevated alkaline phosphatase of 145, uncertain etiology. I agree with the NG tube placement to low intermittent Gomco suction. This has significantly improved his abdominal pain and distention. There is no obvious blood in the NG tube drainage. We may need to put some Gastrografin down this tube and take pictures of his abdomen to be certain he does not have a gastric outlet obstruction. 17. Proton pump inhibitors. 18. We would check GGTP, INR and repeat CBC now. 19. Recheck labs in the a.m. 20. I am reluctant to do an EGD on him unless this is a life threatening emergency based on his poor cardiac status and high risk for complications. 21. N.P.O. except ice chips. Thank you very much once again for allowing me to participate in his care. We will follow along with you. He may need endoscopy at some point. Right now, he does not have an acute abdomen any longer. Thank you very much once again for allowing me to participate in his care, Dr. aRmírez. ��������������������������������������������� <ELECTRONICALLY SIGNED> ���������������������������������������� By: Lily Cheng DO ��������������������������������������������� 06/20/18 1545 1209 [id number] Lily Cheng DO /nt
--- NOTE | 2018-06-20 17:03 | NUR ---
OSWALDO CLR LQDS W/O N/V/PAIN. SECURITY CALLED ONCE THIS pNOON PT BECAME HOSTILE & BELLIGERANT.REMAINS ON VERY LOW DOSE OF LEVO, PRECEDEX TITRATED PT STATUS REQUIRES.--VW
--- NOTE | 2018-06-20 18:47 | NUR ---
S.O. IN BRIEFLY. 4 DIGIT CODE GIVEN TO HER. PT SLOWLY PROGRESSING TOWARD GOALS.--VW
[2018-06-21] VITALS (41 sets, daily range): BP systolic 82–112; BP diastolic 36–82
--- NOTE | 2018-06-21 04:32 | NUR ---
PT MORE AWAKE DURING THE NIGHT. STILL DISTENDED STOMACH REPORTS FEELING BLOATED AND THINK WAS ALL GAS. TRIED SEMETHECONE X 1. PT CONTINUED TO BE RESTLESS, ARGUING AT TIMES WITH HIS . PATIENT DENIES PAIN. 1999, PT LUNGS WERE SOUNDING CLEAR/ DIMINISHED WITH FINE CRACKLES, BY 0000, HE WAS SOUNDING COURSE AND MORE SOA. POST SECONDARY PROFESSIONAL SHRAVAN UPDATED. PT WAS REQUESTING LASIX BUT DUE TO GOAL OF BRINGING HIS BP UP, NO DOSE WAS GIVEN.. FAIR AMOUNT OF URINE OUTPUT DURING THE NIGHT. SEE I&O. CHEST X-RAY WAS DONE. PT IS NO PRECEDEX 1.4 MCG AND LEVOFPHED 1 MCG. MAP SUSTAINED > 55 ALL NIGHT. ATIVAN GIVEN X 1 FOR ANXIERTY. NO SIGN OF AGGRASSION. EASY TO REDIRECT. WILL CONTINUE TO POC.
[2018-06-21 06:14] LABS: BASOPHILS 0.3 % (0.0-2.0); EOSINOPHILS 0.8 % (0.0-3.0); HEMATOCRIT 36.6 % (42.0-52.0); HEMOGLOBIN 11.4 gm/dL (14.0-18.0); LYMPHOCYTES 8.3 % (24.0-44.0); MCH 22.5 pg (26.0-34.0); MCV 72.6 fL (80.0-100.0); MONOCYTES 7.7 % (1.0-8.0); PLATELET COUNT 190 thou/uL (150-400); POLYS 82.9 % (36.0-66.0); RBC 5.04 mil/uL (4.50-6.00); RDW 21.8 % (10.5-14.5); WBC 15.7 thou/uL (4.0-11.0)
[2018-06-21 06:16] LABS: CALCIUM 8.3 mg/dL (8.5-10.1); CREATININE 1.6 mg/dL (0.7-1.3)
--- NOTE | 2018-06-21 15:55 | NUR ---
Case opened to follow for dc planning. Pt is currently in ICU d/t CHF. He was able to wean off levo this afternoon but continues on precedex gtt d/t withdrawal.UDS +meth. Pt acknowledges use along with thc. He has been to rehab and may be open to outpt tx at [facility]. Angela states they have a place to live and that she does not use. She tries to help him get to appts and get his scripts filled. He reports having an issue getting his lasix filled at his pharmacy and he can't breathe without it. provied a copy of his AD/dpoa for health care document that was completed at [facility]. Copy placed on the medical record. Pt rambling some and very sleepy. CM to follow along for dc planning needs. Pt is normally indep with gait and adl's. They do use [facility] for appts. His primary care is at [facility]. Cm role introduced. Will provide substance abuse resources for the pt in his dc instructions.
--- NOTE | 2018-06-21 19:15 | NUR ---
Assumed care of patient at 0700. Patient intermittently very awake and alert vs. drowsy, borderline obtunded. Precedex remains at max dose, with PRN PO ativan 1mg given once. Patient is easily agitated when he is reminded of diet restrictions, fluid restrictions, activity restrictions, etc. Threatening to leave and demanding different nurses. Labored breathing through the day, with RR increasing to 40s at times. Some cheynne brink breathing noted as well. Off levophed gtt in afternoon, BP has remained with MAP > 65. Patient states he normally takes lasix more than once daily at home, he is requesting nursing reach out to MD. Page to hospitalist, awaiting call back. IVF on hold until callback. Belly remains distended. Patient denies nausea or abd pain. Wants to eat and drink, advanced to soft/mechanical ground diet per GI. Encouraged fluid restriction. Report given to oncoming RN.
--- NOTE | 2018-06-21 19:20 | NUR ---
Assumed care of this pt at 1900. He is very restless, agitiated and calling out for nurse. Labored breathing , RR in 30's . O2 sat > 92% on RA. Lung sound dim t/o. He has been having trouble breathing in past several days per his report. He requesting to have more lasix. His ABD is distended. Might be part of his breathing issue. Denies GI discomfort. Last KUB has shown Ileus. Will give relistor as order. Will notify EMPLOYEE'S REPRESENTATIVE regarding of his concerns.
--- NOTE | 2018-06-21 23:00 | NUR ---
Pt with sleep apnea notes. He is also c/o trouble breathing. CPAP applied per RT. He frequently removed it. He is very difficult to manage tonight. Gave ativan PO for anxiety. Will continue to monitor any changes.
[2018-06-22] VITALS (61 sets, daily range): BP systolic 73–124; BP diastolic 44–98
[2018-06-22 00:18] LABS: BE(vivo) -3.3 mmol/L (-2 to +3); HCO3 20.4 mmol/L (22.0-26.0); PCO2 32.5 mmHg (35.0-45.0); PO2 62.3 mmHg (80.0-100.0); pH 7.416 (7.360-7.450); sO2 92.5 % (92.0-98.0)
--- NOTE | 2018-06-22 01:50 | NUR ---
Pt c/o ABD pain this am. His ABD became more distended. Denies of any N/V. Increasing more labor breathing. Last KUB has shown Ileus. Notified ADY Reynoso. Order obtain for insert NGT to LIS. I explained procedure to pt and his . they are agreed with procedure. This RN able to placed NGT after 3rd attempted. Some small blood noted on Rt nare,possible trauma from procedure. No s/sx of any aspiration. He is swati procedure. Place NGT to LIS , gastric content returned approximately 400 ml . He report immediate relief from pain and less labor breathing. Continue to monior any changes.
[2018-06-22 05:23] LABS: HEMATOCRIT 36.8 % (42.0-52.0); HEMOGLOBIN 11.3 gm/dL (14.0-18.0); MCH 22.5 pg (26.0-34.0); MCHC 30.7 g/dL (28.0-37.0); MCV 73.1 fL (80.0-100.0); RBC 5.03 mil/uL (4.50-6.00); WBC 13.6 thou/uL (4.0-11.0)
[2018-06-22 05:33] LABS: CALCIUM 9.2 mg/dL (8.5-10.1); CREATININE 1.7 mg/dL (0.7-1.3); POTASSIUM 4.2 mmol/L (3.5-5.1)
--- NOTE | 2018-06-22 06:38 | NUR ---
ASSUMED CARE OF PT AT 0100.PT RESTING AT THIS TIME IN NO ACUTE DISTRESS.NG TUBE TO LIS.PT STATES HE FEELS MUCH BETTER AFTER NG TUBE WAS INSERTED.OBTAINED 700CC OF BILE.IVF INFUSED.ABD STILL DISTENDED AND FIRM.BS HYPOACTIVE X4 QUADS.VSS.ELLIE DD,350CC UO THIS SHIFT.PT DENIES NEEDS AT THIS TIME.WILL CONT WITH POC.
--- NOTE | 2018-06-22 18:00 | NUR ---
Assumed care of patient at 0700. Patient had intermittent periods of alertness and somnolence through the day. At times when first waking, patient is confused, disoriented, and yelling. Needs frequent reminding about NPO diet, and safety precautions in the hospital. Easily re-directable at times, other times not. Had previously been off levophed since yesterday and BP stable, gave morning cardiac meds. Then, had to resume levophed in early afternoon. Currently running at 3. Approx 1600, patient and were heard yelling and arguing. RN and charge nurse attempted to calm patient, he was accusing of taking money. Patient became increasingly more agitated and threatening. Security called. Dr. Desiree macdonald, new orders for IVP ativan and haldol PRN. Following incident, patient able to calm down and sleep. Update given to over the phone, she will not be back to visit for a few hours. Continue to monitor closely.
[2018-06-23] VITALS (68 sets, daily range): BP systolic 64–132; BP diastolic 30–111
[2018-06-23 05:00] LABS: HEMATOCRIT 35.8 % (42.0-52.0); HEMOGLOBIN 10.9 gm/dL (14.0-18.0); MCH 22.4 pg (26.0-34.0); MCHC 30.5 g/dL (28.0-37.0); MCV 73.3 fL (80.0-100.0); RBC 4.88 mil/uL (4.50-6.00); RDW 21.7 % (10.5-14.5); WBC 9.9 thou/uL (4.0-11.0)
[2018-06-23 05:10] LABS: CALCIUM 8.3 mg/dL (8.5-10.1); CREATININE 1.5 mg/dL (0.7-1.3); POTASSIUM 4.5 mmol/L (3.5-5.1)
--- NOTE | 2018-06-23 05:16 | NUR ---
RECEIVED PT'S CARE AT 1930; PT. ON BED SLEEPING; AROUND 1999 PT. WOKE UP DEMANDING FOOD; EDUCATED ABOUT NPO; ICE CHIPS GIVEN; ST. UNDERSTANDING; AROUND MIDNIGHT; PT. RESTLESS; YELLING TO NURSE; AGITATED; "I WILL PUNCH YOU"; TRYING TO GET OUT OF BED; PRN MEDICATION GIVEN; THROUGH THE NIGHT WOKE UP AND DEMANDED TO CALL HIS ; ST. "I HAVE A BUSSINESS", "I DO NOT CARE WHAT TIME IT IS"; ABLE TO REST FOR A FEW HOURS WITH EYES CLOSED; AT 0340 PT C/O VS MONITOR; ST. IT HITS ME ON MY HEAD; PRN MEDICATION GIVEN; FORGETFUL REQUESTING THROUGH THE NIGHT WATER OR FOOD; REMINDED THE NEED OF BEING NPO; ICE CHIPS PROVIDED; UNCOOPERATIVE; HOSTILE WHEN GETTING UP; SBP BETWEEN 80-100'S; MAP ABOVE 65; NSR; ASSESSMENT CHARGED; FOLLOWING POC; WILL KEEP MONITORING; WILL PASS ON REPORT.
--- NOTE | 2018-06-23 19:16 | NUR ---
ASSUMED CARE AT 0730. PATIENT RESTLESS AND AGITATED. WANTS ORANGE JUICE AND BREAKFAST. REEDUCATED ABOUT NGT AND NPO STATUS EXCEPT ICE CHIPS. NO COMPLAINTS OF PAIN. ABDOMEN STILL DISTENDED AND HYPOACTIVE BOWEL SOUNDS. PRECEDEX AT 1.3 MCG/KG/HR AND LEVOPHED AT 3 MCG/MIN. ATTEMPTED TO TITRATE LEVOPHED DOWN, BUT SBP DROPPED TO 60'S. PRN ATIVAN IV GIVEN FOR AGITATION WITH GOOD RESULTS. SR/SA WITH PVC'S. SOME TRIGEMENY NOTED TODAY.
[2018-06-24] VITALS (46 sets, daily range): BP systolic 76–137; BP diastolic 44–92
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
[2018-06-24 04:59] LABS: ABSOLUTE NEUTROPHILS 8.4 thou/uL (1.4-8.2); BASOPHILS 0.5 % (0.0-2.0); EOSINOPHILS 2.7 % (0.0-3.0); HEMATOCRIT 34.3 % (42.0-52.0); HEMOGLOBIN 10.5 gm/dL (14.0-18.0); LYMPHOCYTES 11.5 % (24.0-44.0); MCH 22.1 pg (26.0-34.0); MCHC 30.6 g/dL (28.0-37.0); MCV 72.4 fL (80.0-100.0); MONOCYTES 9.8 % (1.0-8.0); PLATELET COUNT 220 thou/uL (150-400); POLYS 75.5 % (36.0-66.0); RBC 4.73 mil/uL (4.50-6.00); RDW 21.5 % (10.5-14.5); WBC 11.2 thou/uL (4.0-11.0)
[2018-06-24 05:05] LABS: CALCIUM 8.4 mg/dL (8.5-10.1); CREATININE 1.5 mg/dL (0.7-1.3)
[2018-06-24 10:17] LABS: MAGNESIUM 2.1 mg/dL (1.8-2.4)
--- NOTE | 2018-06-24 15:56 | NUR ---
NG D/C THIS AM AND PT STARTED ON FULL LIQUID DIET, TOLERATING WELL. PT UP TO BEDSIDE COMMODE X 2 ASSIST AND HAD SMALL BM. CONT ON 2L NC, PT VERY SOA WITH MINIMAL EXERTION AND ANY AGITATION. PT TACHYPNEIC EVEN WHILE CALM AND AT REST. PT REFUSED BEDBATH, BUT DID ALLOW LINEN TO BE CHANGED WHILE UP TO COMMODE. PRECEDEX OFF MOST OF AM PT WAS VERY DROWSY AND LETHARGIC. PSYCH CONSULT CALLED, PT HAS NOT BEEN SEEN YET.
--- NOTE | 2018-06-24 16:46 | NUR ---
FOLLOWING FOR DC PLANNING. CLINICAL INFO REVIEWED. PT HAS BEEN ABLE TO HAVE NGT REMOVED TODAY AND SO FAR TOLERATING FULL LIQUID DIET. HE IS OFF PRECEDEX AND LEVOPHED GTTS AT PRESENT. SPOUSE HERE PART OF DAY. PLAN TO INCREASE MOBILIZATION.
[2018-06-25] VITALS (18 sets, daily range): BP systolic 90–138; BP diastolic 47–117
--- NOTE | 2018-06-25 01:10 | NUR ---
GCS 14. A&O X2-3. FORGETFUL BUT REORIENTS EASILY. RESTLESS AND ANXIOUS. PT BECOMES AGITATED WITHOUT PROVOCATION. HOWEVER, AGITATION SIGNIFICANTLY LESS INTENSE THAN IT WAS THE PREVIOUS NIGHT. ZYPREXA ADMINISTERED FOR AGITATION. NON-PHARMOCOLOGICAL INTERVENTIONS TO MANAGE AGITATION AND ANXIETY THIS SHIFT INCLUDE PROGRESSIVE MUSCLE RELAXATION AND DEEP BREATHING EXERCISES. INCREASED HEART RATE NOTED SINCE PRECEDEX STOPPED. SINUS TACH WITH PVCs AND PACs ON MONITOR. PT DENIES CHEST PAIN. LUNGS DIMINISHED TO AUSCULTATION. PT DENIES SOA, ALTHOUGH BREATHING BECOMES LABORED WITH AGITATION AND MILD EXERTION. PT CONSISTENTLY TACHYPNEIC, EVEN AT REST. PT TOLERATING FULL LIQUID DIET. MULTIPLE LIQUID BM THIS SHIFT. UP TO BEDSIDE COMMODE X2 ASSIST. PT REPORTED ABDOMENAL CRAMPING AT BEGINNING AT SHIFT. DENIES ABDOMENAL PAIN AT THIS TIME. AT 2330, PT BEGAN TO C/O BILATERAL LEG PAIN. VITAL SIGNS AND ASSESSMENTS DOCUMENTED. WILL CONTINUE TO MONITOR.
--- NOTE | 2018-06-25 11:27 | NUR ---
PT C/O L KNEE PAIN, PT KEPT IN BED PENDING XRAY. XRAY OF L KNEE NEGATIVE. PT GIVEN TRAMADOL FOR PAIN. PRN ZYPREXA GIVEN WELL TO HELP CALM PATIENT DOWN
--- NOTE | 2018-06-25 14:21 | NUR ---
PT TRANSFERRING TO ROOM 201 MED/SURG TELE STATUS. NOTIFIED BY PHONE. ALL BELONGINGS SENT WITH PATIENT
--- NOTE | 2018-06-25 14:59 | NUR ---
PT ORIENTED TO ROOM AND UNIT. BED LOW AND LOCKED, SIDE RAILS UPX 3 CALL LIGHT IN REACH. BED ALARM ON. WILL CONTINUE TO ASSESS.
--- NOTE | 2018-06-25 18:39 | NUR ---
CONTACT DR. THOMAS TO INFORM PT C/O ABDOMINAL AND CHEST PAIN. INSTRUCTED TO GET STAT EKG AND TROPONIN AND GIVEN 2MG IV MORPHINE. WILL CONTINUE TO ASSESS.
--- NOTE | 2018-06-25 19:16 | NUR ---
REASSESS PT BEFORE END OF SHIFT. PT SEEMS TO BE RESPONDING WELL AFTER GIVEN MORPHINE. PT IS BREATHING EASIER AND IS MORE RELAXED. INFORMS ME THAT DISCOMFORT IS GONE. CATIE REPORT GIVEN TO ZAC MARS
[2018-06-26 00:35] VITALS: BP 119/99
--- NOTE | 2018-06-26 05:53 | NUR ---
PATIENTS CARES WERE ASSUMED AT SHIFT CHANGE. PATIENT WAS ASSESSED AND MEDS WERE PASSED. HOURLY ROUNDING WAS DONE. PATIENT WOULD SLEEP IN SHORT SEGMENTS. THIS PATIENT WOULD ALSO YELL OUT "HELP ME" AND THE PATIENT WOULD GET VERBAL WITH HIS VOCABULARY HAVING MANY OBSCENITIES. THE BED IS IN A LOW AND LOCKED POSITION. THE BED ALARM IS ON.
[2018-06-26 07:59] VITALS: BP 124/90
--- NOTE | 2018-06-26 08:00 | EKG ---
[place] [address] [facility] [place] [address] ELECTROCARDIOGRAM REPORT Name: RASHEEDAGEOVANI Room #: 201-P ADM IN M.R.#: [id number] ������������������ Admission: 06/19/18 ������������������ Attend Phys: Dank Ramírez MD Discharge: ������������������ Date of : 64 Report #: [id number] ����������������������������������������������������������������� [id number] THIS REPORT FOR: //name// [facility] Test Date: 2018-06-25 Test Time: 18:52:55 Pat Name: GEOVANI VANESSA Department: Room: 201 P Gender: M Used Car Manager: Jeromy DANIELLE : 1960 Requested By: Dank Ramírez Order Number: [id number] MD: Jeremy Blair Measurements Intervals [place] Rate: 97 P: 72 DC: 176 QRS: 11 QRSD: 107 T: 106 QT: 376 QTc: 478 Interpretive Statements Sinus tachycardia Occasional atrial premature complexes Poor R wave progression Nonspecific ST and T wave abnormality Borderline prolonged QT interval Compared to ECG 06/19/2018 04:07:30 atrial premature complexes are now present Electronically Signed On 06-26-2018 7:59:50 CDT by Jeremy Blair [email or web address] ��������������������������������������������� <ELECTRONICALLY SIGNED> ���������������������������������������� By: Jeremy Blair MD, [facility] ��������������������������������������������� 06/26/18 0759 [id number] Jeremy Blair MD, [facility] /EPI
[2018-06-26 10:54] VITALS: BP 118/84
[2018-06-26 14:27] VITALS: BP 118/84
--- NOTE | 2018-06-26 14:38 | NUR ---
spoke with tenative dc home today. reports they were [place] in [place] but actually live in [place] at this time. They have no transportation home. Cab voucher to home. Verified address and gave voucher to RN if planned dc today.
[2018-06-26 16:58] VITALS: BP 96/74
--- NOTE | 2018-06-26 17:16 | NUR ---
ASSUMED CARE AT SHIFT CHANGE, ASSESSMENT DOCUMENTED. ALERT AND ORIENTED AND HAS PERIODS OF CONFUSION. COOPERATIVE, AND FOLLOWS SIMPLE COMMANDS. FAMILY AT BEDSIDE. AND WILL CONTINUE WITH POC.
[2018-06-26] MEDS ORDERED: LISINOPRIL2.5 MG PO (17:31)
[2018-06-26] MEDS ORDERED: ASPIR 8181 MG PO (17:31)
[2018-06-26] MEDS ORDERED: IPRAT-ALBUT 0.5-3 ML INH (17:31)
[2018-06-26] MEDS ORDERED: COLACE 100 MG100 MG PO (17:31)
[2018-06-26 17:50] VITALS: BP 96/74
--- NOTE | 2018-06-27 07:14 | NUR ---
PATIENT DISCHARGED PRIOR TO OT EVALUATION BEING INITIATED.
== END 2018-06-26 18:29 | disposition home or self-care (01) | DRG 388 ==
LOC: ER 03:54 → EROBS 05:29 → 2N 05:29 → ICU 05:29 → 2N 06:00 → ICU 12:22 → 2N 06-25 14:58 → ENTRNSPT 06-26 18:07 → 2N 06-26 18:29
PROVIDERS: Internal Medicine Gastroenterology; Student in an Organized Health Care Education/Training Program; ADMIT Hospitalist
PROC: 0D9670Z Drainage of Stomach with Drainage Device, Via Natural or Artificial Opening (ICD-10-PCS; principal; 2018-06-21)
DX: K56.7 Ileus, unspecified (principal); I50.23 Acute on chronic systolic (congestive) heart failure; G92 Toxic encephalopathy; I13.0 Hypertensive heart and chronic kidney disease with heart failure and stage 1 through stage 4 chronic kidney disease, or unspecified chronic kidney disease; I47.2 Ventricular tachycardia; N17.9 Acute kidney failure, unspecified; F10.231 Alcohol dependence with withdrawal delirium; I95.9 Hypotension, unspecified; J44.9 Chronic obstructive pulmonary disease, unspecified; E87.6 Hypokalemia; K59.00 Constipation, unspecified; I25.5 Ischemic cardiomyopathy; F31.9 Bipolar disorder, unspecified; K31.89 Other diseases of stomach and duodenum; F41.9 Anxiety disorder, unspecified; E78.5 Hyperlipidemia, unspecified; R14.0 Abdominal distension (gaseous); I73.9 Peripheral vascular disease, unspecified; D50.9 Iron deficiency anemia, unspecified; I25.10 Atherosclerotic heart disease of native coronary artery without angina pectoris; E83.42 Hypomagnesemia; I27.20 Pulmonary hypertension, unspecified; F17.200 Nicotine dependence, unspecified, uncomplicated; N18.3 Chronic kidney disease, stage 3 (moderate); F15.10 Other stimulant abuse, uncomplicated; F12.10 Cannabis abuse, uncomplicated; Y90.9 Presence of alcohol in blood, level not specified; Z82.49 Family history of ischemic heart disease and other diseases of the circulatory system; Z86.73 Personal history of transient ischemic attack (TIA), and cerebral infarction without residual deficits; Z91.14 Patient's other noncompliance with medication regimen; I25.2 Old myocardial infarction; Z79.899 Other long term (current) drug therapy
CPT/HCPCS: 10078; 10081